=== PATIENT | female | born 1980 | race African-American/Black ===

== ENCOUNTER 2017-03-20 13:57 | Emergency (ER) | payer OTHER ==
--- NOTE | 2017-03-20 14:13 | ED Physician Documentation ---
Fall - HISTORIAN Historian: patient - HPI Stated Complaint: fall Chief Complaint: Fall Onset: just prior to arrival Where: other (the housing [facility]) Context: other (due to a hole ) Associated Symptoms:: no loss of consciousness Location of Pain/Injury: lower extremity (right knee - left ankle ) Injury to Right Extremity: knee Injury to Left Extremity: ankle Further Comments: yes (she states she was walking and did not see a hole and fell. hitting her right knee directly and twisting her left foot /ankle) - ROS CONST: no problems NEURO: denies: dizziness - PAST HX Past History: none Immunizations: UTD Allergies/Adverse Reactions: Allergies Allergy/AdvReac Type Severity Reaction Status Date / Time caffeine Allergy Verified 03/20/17 14:11 [From Excedrin Aspirin Free] cephalexin monohydrate Allergy Verified 03/20/17 14:11 [From Keflex] Sulfa (Sulfonamide Allergy Verified 03/20/17 14:11 Antibiotics) [Sulfa(Sulfonamide Antibiotics)] Home Medications: Ambulatory Orders Medication Instructions Recorded Aripiprazole [Abilify] 5 mg PO DAILY 03/20/17 Duloxetine HCl [Duloxetine HCl] 30 mg PO DAILY 03/20/17 - SOCIAL HX Smoking History: non-smoker Alcohol Use: none Drug Use: none - FAMILY HX Family History: none - VITAL SIGNS Vital Signs: Vital Signs Temp Pulse Resp BP Pulse Ox 126/67 07/21/15 16:48 - REVIEWED ASSESSMENTS Nursing Assessment Reviewed: Yes Vitals Reviewed: Yes ED Results Lab/Radiology - Radiology Radiology Impressions: HISTORY: 37-year-old female with left ankle pain after fall. COMPARISON: None available TECHNIQUE: 3 views of the left ankle were performed. FINDINGS: No acute fracture or dislocation about the left ankle. The mortise is intact. There are mild tibiotalar degenerative changes with anteriorly projecting marginal osteophytes. IMPRESSION: No fracture or acute osseous abnormality of the left ankle. Electronically signed on Mar 20, 2017 2:48:47 PM ADMISSIONS SUPERVISOR by: Shaquille Giang HISTORY: 37-year-old female with left foot pain after fall. COMPARISON: None available TECHNIQUE: 3 views of the left foot were performed. FINDINGS: No acute fracture or dislocation are identified about the left foot. 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 IMPRESSION: No fracture or acute osseous abnormality of the left foot. Electronically signed on Mar 20, 2017 2:49:53 PM ADMISSIONS SUPERVISOR by: Shaquille Giang HISTORY: 37-year-old female with right knee pain after fall. COMPARISON: None available TECHNIQUE: 3 views of the right knee were performed. FINDINGS: No acute fracture is identified about the right knee. No significant joint space narrowing. There are tiny patellofemoral marginal osteophytes extending laterally. No definite effusion. IMPRESSION: 1. No fracture or acute osseous abnormality of the right knee. 2. Mild patellofemoral degenerative changes. Electronically signed on Mar 20, 2017 2:59:43 PM ADMISSIONS SUPERVISOR by: Shaquille Giang Fall Physical Exam - Physical Exam General Appearance: mild distress Head: non-tender Neck: non-tender Eye: JODI ENT: nml external inspection Resp/CVS: chest non-tender, breath sounds nml, no resp. distress, heart sounds nml Abdomen: soft, normal bowel sounds Neuro: oriented x3, CN's nml as tested, sensation nml, motor nml, mood/affect nml Skin: color nml, no rash Extremities: other (right knee with visable abrasion, pain to right knee - touch on bilateral sides of patella. Pulses + pain with flexion. pulses normal. right ankle right lateral side mild swelling. Pulses + sensaion + FROM ) - Cristobal Coma Score Eyes Open: Spontaneous Speech: Oriented Motor: Obeys Commands Discharge Clincal Impression: Fall Qualifiers: Encounter type: initial encounter Qualified Code(s): W19.XXXA - Unspecified fall, initial encounter Referrals: Abimbola Strauss MD [Primary Care Provider] - 2 Days Comments: Tramadol 50 mg take 1 by mouth every 12 hours as needed for pain Ibuprofen 800 mg BID as needed for pain Ele[facility] Follow up with PCP 3-4 days Condition: Stable Disposition: 01 HOME, SELF-CARE Decision to Admit: NO Date of Decison to Admit: 03/20/17 Decision Time: 15:10
[2017-03-20 14:19] VITALS: BP 112/73
[2017-03-20] MEDS ORDERED: KETOROLAC TROMETHAMINE 60 MG/2 ML VIAL IM ONE (14:52)
[2017-03-20] MEDS ORDERED: KETOROLAC TROMETHAMINE 60 MG/2 ML VIAL ONE (14:52)
--- NOTE | 2017-03-20 16:19 | Diagnostic Imaging Report ---
[facility] [address] [facility] [id number] Report Submission Date: Mar 20, 2017 2:59:43 PM HEALTH ADMINISTRATION TEACHER Patient Study Name: CRISTHIAN HENDRICKS Date: Mar 20, 2017 2:38:33 PM HEALTH ADMINISTRATION TEACHER Modality Type: CR Gender: F Description: LOWER EXTREMITY : 82 Institution: [facility] Physician: VALENTINE JONES HISTORY: 37-year-old female with right knee pain after fall. COMPARISON: None available TECHNIQUE: 3 views of the right knee were performed. FINDINGS: No acute fracture is identified about the right knee. No significant joint space narrowing. There are tiny patellofemoral marginal osteophytes extending laterally. No definite effusion. IMPRESSION: 1. No fracture or acute osseous abnormality of the right knee. 2. Mild patellofemoral degenerative changes. Electronically signed on Mar 20, 2017 2:59:43 PM HEALTH ADMINISTRATION TEACHER by: Shaquille CONTEH
--- NOTE | 2017-03-20 16:20 | Diagnostic Imaging Report ---
[facility] [address] [facility].[address] [id number] Report Submission Date: Mar 20, 2017 2:49:53 PM BEHAVIORAL SCIENCES INSTRUCTOR Patient Study Name: CRISTHIAN HENDRICKS Date: Mar 20, 2017 2:33:35 PM BEHAVIORAL SCIENCES INSTRUCTOR Modality Type: CR Gender: F Description: LOWER EXTREMITY : 82 Institution: [facility] Physician: VALENTINE JONES HISTORY: 37-year-old female with left foot pain after fall. COMPARISON: None available TECHNIQUE: 3 views of the left foot were performed. FINDINGS: No acute fracture or dislocation are identified about the left foot. 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 IMPRESSION: No fracture or acute osseous abnormality of the left foot. Electronically signed on Mar 20, 2017 2:49:53 PM BEHAVIORAL SCIENCES INSTRUCTOR by: Shaquille CONTEH
--- NOTE | 2017-03-20 16:20 | Diagnostic Imaging Report ---
[facility] [address] [facility].[address] [id number] Report Submission Date: Mar 20, 2017 2:48:47 PM [employer]DER [employer] AUTOMATIC Patient Study Name: CRISTHIAN HENDRICKS Date: Mar 20, 2017 2:28:27 PM W[employer]DER G[employer] AUTOMATIC Modality Type: CR Gender: F Description: LOWER EXTREMITY : 82 Institution: [facility] Physician: VALENTINE JONES HISTORY: 37-year-old female with left ankle pain after fall. COMPARISON: None available TECHNIQUE: 3 views of the left ankle were performed. FINDINGS: No acute fracture or dislocation about the left ankle. The mortise is intact. There are mild tibiotalar degenerative changes with anteriorly projecting marginal osteophytes. IMPRESSION: No fracture or acute osseous abnormality of the left ankle. Electronically signed on Mar 20, 2017 2:48:47 PM W[employer]DER G[employer]OMAT[employer] by: Shaquille CONTEH
== END 2017-03-20 15:10 | disposition home or self-care (01) ==
LOC: ED 13:57
DX: T14.90XA Injury, unspecified, initial encounter (principal); W19.XXXA Unspecified fall, initial encounter
CPT/HCPCS: 73562; 73610; 73630; J1885; 96372; 99283